=== PATIENT | male | born 1965 | race Caucasian/White ===

== ENCOUNTER 2018-02-08 11:25 | Emergency (ER) | payer OTHER ==
[2018-02-08 11:31] VITALS: BP 148/96; PULSE 83; TEMP 98.4; BMI 28.7
--- NOTE | 2018-02-08 11:43 | PDOC ---
History of Present Illness - General Chief Complaint: Redness To Affected Area Stated Complaint: REDNESS TO RIGHT UPPER ARM Time Seen by Provider: 02/08/18 11:29 History Source: Patient, Family Exam Limitations: No Limitations - History of Present Illness Initial Comments: 02/08/18 11:37 CHIEF COMPLAINT: Tick bite right arm HISTORY OF PRESENT ILLNESS: Patient is a 52-year-old man with a history of hypertension. (He states he is due for his blood pressure medication this morning, but he has not yet taken it.) He was out in the [facility] yesterday. This morning he noticed a tick on his right upper arm in the region of the triceps muscle. His daughter tried to pull it out but the head remained behind. He comes in now for evaluation. REVIEW OF SYSTEMS: No fever or chills No other insect bites or tick bites noted No joint pains or swelling Past History - Past Medical History Allergies/Adverse Reactions: Allergies Allergy/AdvReac Type Severity Reaction Status Date / Time No Known Allergies Allergy Verified 02/08/18 11:26 Home Medications: Ambulatory Orders Amlodipine Besylate 10 mg PO DAILY 02/08/18 Buspirone HCl [Buspar -] 10 mg PO BID 02/08/18 Losartan Potassium 100 mg PO DAILY 02/08/18 Asthma: No Cardiac Disorders: No COPD: No Diabetes: No GI Disorders: No Disorders: No HTN: Yes Kidney Stones: No Psychiatric Problems: Yes (ANXIETY) Seizures: No - Surgical History Abdominal Surgery: No Appendectomy: No Cardiac Surgery: No Cholecystectomy: No Lung Surgery: No Neurologic Surgery: No Orthopedic Surgery: No - Reproductive History Testicular Surgery: No - Suicide/Smoking/Psychosocial Hx Smoking History: Current every day smoker Have you smoked in the past 12 months: Yes Number of Cigarettes Smoked Daily: 10 Information on smoking cessation initiated: Yes 'Breaking Loose' booklet given: 02/08/18 Hx Alcohol Use: No Drug/Substance Use Hx: No Substance Use Type: None Hx Substance Use Treatment: Yes *Physical Exam - Vital Signs Last Vital Signs Temp Pulse Resp BP Pulse Ox 98.4 F 83 18 148/96 100 02/08/18 11:25 02/08/18 11:25 02/08/18 11:25 02/08/18 11:25 02/08/18 11:25 - Physical Exam Comments: 02/08/18 11:39 GENERAL: The patient is awake, alert, and fully oriented, in no acute distress. HEAD: Normal with no signs of trauma. EYES: Pupils equal, round and reactive to light, extraocular movements intact, sclera anicteric, conjunctiva clear. EXTREMITIES: The right upper extremity has a small lesion overlying the mid triceps region. There is an ecchymotic region the size of an eraser head. There is a small black tick head in the center of that area. There is no surrounding erythema. There is no induration. There is no fluctuance. NEUROLOGICAL: Normal speech, normal gait. PSYCH: Normal mood, normal affect. SKIN: Warm, Dry, normal turgor, no rashes or lesions noted. Procedures - Additional Procedures Additional Procedures: other Progress: 02/08/18 11:41 Right upper arm prepped with chlorhexidine. 18-gauge needle used to remove tick head from the subcutaneous skin. Bacitracin and Band-Aid applied post removal. Medical Decision Making - Medical Decision Making 02/08/18 11:42 52-year-old man with a history of hypertension presents with a tick bite. He likely got the tick bite [place] in the park when he was outdoors. He first noted the tick this morning in his right arm and attempted to remove it. He partially remove the tick but the head was left behind. He has no signs of localized infection and no systemic symptoms of infection. In the ED, the tick head was removed from the subcutaneous tissue. Bacitracin and Band-Aid was applied. One dose of doxycycline given for prophylaxis of possible exposure to Lyme disease. Patient advised regarding signs and symptoms of Lyme disease and indications for follow-up. *DC/Admit/Observation/Transfer Diagnosis at time of Disposition: Tick bite of right upper arm Qualifiers: Encounter type: initial encounter Qualified Code(s): S40.861A - Insect bite ( nonvenomous) of right upper arm, initial encounter; W57.XXXA - Bitten or stung by nonvenomous insect and other nonvenomous arthropods, initial encounter; W57.XXXA - Bitten or stung by nonvenomous insect and other nonvenomous arthropods, initial encounter - Discharge Dispostion Disposition: HOME Condition at time of disposition: Stable Admit: No - Referrals - Patient Instructions Printed Discharge Instructions: DI for Lyme Disease Additional Instructions: Today you were evaluated for a tick bite on the right arm. The head of the tick was removed. There is no sign of infection or Lyme disease at this time. You were given 1 dose of doxycycline to prevent infection. Watch for signs of rash or fever over the next 4 weeks. Follow-up with your physician if there are any symptoms. Return to the emergency department for any severe or progressive symptoms if you're unable to see your doctor. - Post Discharge Activity
[2018-02-08] MEDS ORDERED: DOXYCYCLINE HYCLATE 100 MG CAPSULE PO ONE ×2 (11:45→11:49)
== END 2018-02-08 11:52 | disposition home or self-care (01) ==
LOC: FER 11:25
DX: S40.861A Insect bite (nonvenomous) of right upper arm, initial encounter (principal); W57.XXXA Bitten or stung by nonvenomous insect and other nonvenomous arthropods, initial encounter; Y93.89 Activity, other specified; Y92.9 Unspecified place or not applicable; F17.210 Nicotine dependence, cigarettes, uncomplicated; I10 Essential (primary) hypertension; F41.9 Anxiety disorder, unspecified
CPT/HCPCS: 99282-25

== ENCOUNTER 2020-07-31 04:19 | Day surgery (SDC) | payer OTHER ==
[2020-07-27 16:43] VITALS: BMI 25.8
[2020-07-31] MEDS ORDERED: MIDAZOLAM HCL 2 MG/2 ML SINGLE DOSE VIAL ONE ×2 (13:35→13:38)
[2020-07-31] MEDS ORDERED: KETOROLAC TROMETHAMINE 30 MG/1 ML VIAL ONE (13:35)
[2020-07-31 14:26] VITALS: TEMP 98
[2020-07-31 15:01] VITALS: BP 117/82; PULSE 57
--- NOTE | 2020-07-31 15:17 | OP ---
Operative Note - Note: Operative Date: 07/31/20 Pre-Operative Diagnosis: Right renal stone Operation: Right ESWL Findings: 4 mm lower pole Right renal stone Post-Operative Diagnosis: Same as Pre-op Surgeon: Toni Mcnulty Anesthesia: Regional Estimated Blood Loss (mls): 0 Operative Report Dictated: Yes
--- NOTE | 2020-07-31 16:31 | OP ---
DATE OF OPERATION: 07/31/2020 PREOPERATIVE DIAGNOSIS: Right renal stone. POSTOPERATIVE DIAGNOSIS: Right renal stone. PROCEDURE: Right extracorporeal shockwave lithotripsy. ATTENDING: Rey Mcnulty M.D. ANESTHESIA: Fractional. DESCRIPTION OF PROCEDURE: Patient was brought in the operating room, placed in a supine position on the operating room table. Ultrasonography and fluoroscopy were performed. A 4-mm right lower pole stone was identified. At this point, anesthesia and preoperative antibiotics were administered. Shockwave lithotripsy was then started. 2500 impulses at 17 joules of power were administered to the stone with excellent fragmentation of the stone noted under realtime ultrasonography and fluoroscopy. No complications were noted. The patient tolerated the procedure very well. REY RLAPH M.D. [id number]
== END 2020-07-31 15:07 | disposition home or self-care (01) ==
LOC: JASU-SURG 04:19
PROVIDERS: ATTEND Urology
PROC: 0TF3XZZ Fragmentation in Right Kidney Pelvis, External Approach (ICD-10-PCS; principal; 2020-07-31 13:31)
DX: N20.0 Calculus of kidney (principal)